=== PATIENT | female | born 1985 | race Caucasian/White ===

== ENCOUNTER 2023-08-31 20:19 | Emergency (ER) | payer OTHER, SELFPAY ==
[2023-08-31 20:26] VITALS: BP 117/84; PULSE 68; RESP 14; TEMP 37.1; O2SAT 98; BMI 19.8
[2023-08-31 20:38] LABS: Appearance Urine Clear (Clear); Bilirubin Urine Negative (Negative); Blood Urine Trace-intact (Negative); Color Urine Yellow (Yellow); Glucose Urine Negative (Negative); Ketones Urine Negative (Negative); Leukocyte Esterase Urine Negative (Negative); Nitrite Urine Negative (Negative); Protein Urine Trace (Negative); Specific Gravity Urine >= 1.030 (1.000-1.030)
[2023-08-31 20:40] LABS: Mucus Urine Few; RBC Urine 0-2 (0-2); Squamous Epithelial Cell Urine Few (None-Few); WBC Urine 0-2 (0-5)
--- NOTE | 2023-08-31 21:24 | ED_ITS ---
HPI - General Adult General Chief complaint: Urogenital Problems, Female Stated complaint: UTI symptoms Time Seen by Provider: 08/31/23 21:24 History of Present Illness HPI narrative: Pt here for eval of urinary frequency, pressure while urinating, severe cramping , nausea, lower back pain, chills. Tmax at 99.5. 37-year-old woman presenting to the emergency department with complaint of lower abdominal pelvic cramping pain radiating into the left flank as well. Wants to go to the bathroom but does not feel like she can really. No diarrhea but feels like maybe that would be something that would be coming. There has been some cough and cold symptoms in the home. She has not had those kind of symptoms though. Has felt chilled. Nauseated. Feels a vague sense of pressure with urinating but not actually dysuria. Family history or personal history kidney stones. One week post LMP. Has had some what sounds like cervical procedures including a LEEP and she notes a cyst but does not sound like it was an ovarian cyst. She is not constipated. notes that she had a good appetite this evening. Related Data Home Medications Medication Instructions Recorded Confirmed levonorgestrel-ethinyl estradiol 1 tab PO DAILY 08/31/23 09/04/23 0.1 mg-20 mcg tablet (Vienva) ondansetron HCl 4 mg tablet 4 mg PO TID 09/02/23 09/04/23 oxycodone-acetaminophen 5 mg-325 1 tab PO Q4H 09/02/23 09/04/23 mg tablet (Percocet) Previous Rx's Medication Instructions Recorded tamsulosin 0.4 mg capsule (Flomax) 0.4 mg PO DAILY PRN #10 caps 08/31/23 ketorolac 10 mg tablet 10 mg PO Q6H PRN pain 5 days #20 09/02/23 tabs Allergies Allergy/AdvReac Type Severity Reaction Status Date / Time No Known Allergies Allergy Unknown Unknown Verified 09/02/23 11:00 Review of Systems Status of ROS: Reports: 6 or more systems reviewed and unremarkable except as noted in History and below [facility] Medical History Impaired exercise tolerance ?R68.89 - Other general symptoms and signs (ICD-10) Encounter for control pills maintenance ?Z30.41 - Encounter for surveillance of contraceptive pills (ICD-10) History of hemolysis, elevated liver enzymes, and low platelet (HELLP) syndrome (2018) ?Z87.59 - Personal history of other complications of , childbirth and the puerperium (ICD-10) Surgical History History of colposcopy with cervical biopsy (2016) ?Z98.890 - Other specified postprocedural states (ICD-10) History of loop electrical excision procedure (LEEP) (2017) ?Z98.890 - Other specified postprocedural states (ICD-10) History of (2018) ?Z98.891 - History of uterine scar from previous surgery (ICD-10) Social History Narrative: , homemaker, solidworks mechanical designer, from [facility], 1 child Nonsmoker 1-2 alcoholic drinks a week Exercise videos 3 times a week Smoking Status: Never smoker Do you use any of these nicotine containing products: None Second hand tobacco smoke exposure: No How often do you have a drink containing alcohol: never How often do you have six or more drinks on one occasion: Never AUDIT-C Alcohol total score: 0 Non-prescribed substance use: denies use service: No Exam Narrative: Exam Narrative: Pleasant. Appears uncomfortable. Skin is warm and dry. Extremities are well perfused without edema. She is breathing easily. Lungs are clear. Heart in regular rate and rhythm. Abdomen with normoactive bowel sounds is soft. There is a little tenderness in the left mid abdomen. Not exactly flank tenderness. Const: Vital Signs, click to edit/add: Vital Signs - 24 hr 08/31/23 20:26 Temperature 98.8 F Pulse Rate [Pulse Oximeter] 68 Respiratory Rate 14 Blood Pressure [Ri ght Upper Arm] 117/84 Pulse Oximetry 98 Oxygen Delivery Me thod Room Air Documenting provider has reviewed patient's vital signs: yes Course Vital Signs Vital signs: Initial Vital Signs Temperature 98.8 F 08/31/23 20:26 Temperature Source Temporal Artery Scan 08/31/23 20:26 Pulse Rate 68 08/31/23 20:26 Pulse Rhythm Regular 08/31/23 20:26 Respiratory Rate 14 08/31/23 20:26 Blood Pressure 117/84 08/31/23 20:26 Blood Pressure Mean 95 08/31/23 20:26 Blood Pressure Position Sitting 08/31/23 20:26 Pulse Oximetry 98 08/31/23 20:26 Oxygen Delivery Method Room Air 08/31/23 20:26 Vital Signs Temperature 98.8 F 08/31/23 20:26 Pulse Rate 68 08/31/23 20:26 Respiratory Rate 14 08/31/23 20:26 Blood Pressure 117/84 08/31/23 20:26 Pulse Oximetry 98 08/31/23 20:26 Oxygen Delivery Method Room Air 08/31/23 20:26 Temperature 98.4 F 08/31/23 23:50 Pulse Rate 81 08/31/23 23:50 Respiratory Rate 16 08/31/23 23:50 Blood Pressure 126/74 08/31/23 23:50 Pulse Oximetry 97 08/31/23 23:50 Oxygen Delivery Method Room Air 08/31/23 23:50 Medical Decision Making MDM Narrative Medical decision making narrative: Seems does some elements of postvoid cramping which may represent dysuria and cystitis, maybe perimenstrual, may have an ectopic , differential also includes kidney stone. Does not appear to have a bowel symptoms. Will check labs specifically urine and image accordingly if necessary. IV is established received a L normal saline ketorolac morphine and Zofran. Labs are generally reassuring. Urinalysis with some trace intact blood Considering that the type of pain in not explained in other ways I think kidney stone and ureteral colic is a possibility. Did order CT imaging of the abdomen pelvis new. This did show by my read a small 2-3 mm stone about to enter the bladder I think. There is some hydronephrosis as well. Radiology over-read as below. IMPRESSION: Moderate left-sided hydroureteronephrosis secondary to a 3 millimeter obstructing left UVJ stone After initial improvement in pain it escalated again along with nausea. Given Dilaudid dosing and Reglan. Then diphenhydramine for what I think is some histamine related nausea vomiting. Unfortunately this is after she has already received her opiate. Ultimately did want try to manage at home. See patient discharge plan Lab Data Lab results reviewed: Yes I reviewed the patient's lab results Labs: Lab Results 08/31/23 08/31/23 08/31/23 Range/Units 20:30 20:33 21:30 WBC 7.37 (4.50-11.00) K/uL RBC 4.86 (4.00-5.20) m/uL Hgb 15.0 (12.0-16.0) gm/dL Hct 44.9 (33.0-51.0) % MCV 92 (80-100) fL MCH 31 (26-34) pg MCHC 33 (32-36) gm/dL RDW Coeff of Bhavik 12.0 (11.5-15.5) % Plt Count 303 (140-440) K/uL Neut % (Auto) 58.2 (42.0-72.0) % Lymph % (Auto) 31.6 (20-44) % [place] % (Auto) 8.4 (0.0-11.0) % Eos % (Auto) 1.4 (0.0-7.0) % Baso % (Auto) 0.3 (0.0-3.0) % Neut # (Auto) 4.29 (1.7-7.0) K/uL Lymph # (Auto) 2.33 (0.90-2.90) K/uL [place] # (Auto) 0.60 (0.00-0.90) K/UL Eos # (Auto) 0.10 (0.00-0.50) K/uL Baso # (Auto) 0.02 (0.00-0.30) K/uL Abs Immat Gran (auto) 0.01 (0.00-0.30) K/uL Imm/Tot Granulo (auto) 0.1 % Sodium 141 (135-149) mmol/L Potassium 3.9 (3.6-5.1) mmol/L Chloride 106 (96-114) mmol/L Carbon Dioxide 24 (20-32) mmol/L Anion Gap 11 (7-15) mEq/L BUN 14 (5-24) mg/dL Creatinine 0.9 (0.5-1.5) mg/dL Estimated Creat Clear 69.30 Estimated GFR 85 ml/min Glucose 118 H (60-115) mg/dL Calcium 9.7 (8.4-10.6) mg/dL C-Reactive Protein 0.7 (0.5-1.0) mg/dL Urine Color Yellow (Yellow) Urine Appearance Clear (Clear) Urine pH 6.0 (5.0-8.5) Ur Specific [place] >= 1.030 (1.000-1.030) Urine Protein Trace A (Negative) Urine Glucose (UA) Negative (Negative) Urine Ketones Negative (Negative) Urine Blood Trace-intact A (Negative) Urine Nitrite Negative (Negative) Urine Bilirubin Negative (Negative) Urine Urobilinogen 1.0 (0.2-1.0) Ur Leukocyte Esterase Negative (Negative) Urine RBC 0-2 (0-2) Urine WBC 0-2 (0-5) Ur Squamous Epith Cells Few (None-Few) Urine Bacteria None (None) Urine Mucus Few A (None) Urine HCG, Qual Negative (Negative) Discharge Plan Discharge Clinical Impression: Ureteral colic, Left ureteral calculus Patient Disposition: Home w/ Parent or Adult Condition: Improved Additional Instructions: Consider straining your urine over this next week. Sometimes stone analysis can be helpful. Generally stay well-hydrated. Be re-evaluated for pain persisting after 4 more days, marked increase in/uncontrolled pain, fever, intractable vomiting. Zofran and Percocet from [facility]. Can take up to 800 mg of ibuprofen or up to 1000 mg of acetaminophen per dose. Alternative to the ibuprofen might be up to 500 mg naproxen 2 times daily. Ibuprofen or naproxen may be combined with acetaminophen. Remember that each tablet of Percocet contains 325 mg of acetaminophen. Might pre-treat opiates with diphenhydramine if seem to be causing nausea. Flomax sent in to your pharmacy might be helpful with cramping. Take until sure of stone passage/resolution. Prescriptions: New tamsulosin [Flomax] 0.4 mg capsule 0.4 mg PO DAILY PRNQty: 10 0RF No Action oxycodone-acetaminophen [Percocet] 5-325 mg tablet 1 tab PO Q4H ondansetron HCl 4 mg tablet 4 mg PO TID ketorolac 10 mg tablet 10 mg PO Q6H PRN (Reason: pain) 5 Days Qty: 20 0RF levonorgestrel-ethinyl estrad [Vienva] 0.1-20 mg-mcg tablet 1 tab PO DAILY Follow Up/Referrals: Shelia Benavidez MD [Primary Care Provider] - Stand Alone Forms: [employer] Info Instructions
[2023-08-31 21:39] LABS: Ur HCG Qualitative* Negative (Negative)
[2023-08-31 21:41] LABS: Basophils Absolute Auto 0.02 K/uL (0.00-0.30); Basophils Percent Auto 0.3 % (0.0-3.0); Eosinophils Percent Auto 1.4 % (0.0-7.0); Hematocrit 44.9 % (33.0-51.0); Immature Granulocytes Abs Auto 0.01 K/uL (0.00-0.30); Immature Granulocytes Pct Auto 0.1 %; Lymphocytes Absolute Auto 2.33 K/uL (0.90-2.90); Lymphocytes Percent Auto 31.6 % (20-44); Mean Corpuscular HGB Conc 33 gm/dL (32-36); Mean Corpuscular Hemoglobin 31 pg (26-34); Mean Corpuscular Volume 92 fL (80-100); Monocytes Percent Auto 8.4 % (0.0-11.0); Neutrophils Absolute Auto 4.29 K/uL (1.7-7.0); Neutrophils Percent Auto 58.2 % (42.0-72.0); Platelet Count* 303 K/uL (140-440); Red Blood Count 4.86 m/uL (4.00-5.20); White Blood Count* 7.37 K/uL (4.50-11.00)
[2023-08-31 21:42] LABS: Slide Review Reflex No
[2023-08-31] MEDS: 0.9 % SODIUM CHLORIDE 1000 ml 1,000 ML IV (21:43)
[2023-08-31] MEDS: KETOROLAC 30 MG/ML inj IVP (21:43)
[2023-08-31] MEDS: MORPHINE 4 MG/ML INJ IVP (21:43)
[2023-08-31 21:45] VITALS: O2SAT 98
[2023-08-31 21:54] LABS: Chloride* 106 mmol/L (96-114); Potassium* 3.9 mmol/L (3.6-5.1); Sodium* 141 mmol/L (135-149)
[2023-08-31 21:57] LABS: Anion Gap 11 mEq/L (7-15); Blood Urea Nitrogen* 14 mg/dL (5-24); Carbon Dioxide* 24 mmol/L (20-32); Creatinine* 0.9 mg/dL (0.5-1.5); Estimated Glomerular Filt Rate 85 ml/min
[2023-08-31 21:58] LABS: Calcium* 9.7 mg/dL (8.4-10.6); Glucose* 118 mg/dL (60-115)
[2023-08-31] MEDS: ONDANSETRON 2 MG/ML inj 4 MG IVP (21:58)
[2023-08-31 22:00] LABS: C Reactive Protein* 0.7 mg/dL (0.5-1.0)
--- NOTE | 2023-08-31 22:09 | CRLHL7_ITS ---
For Patients: As a result of the Century Cures Act, medical imaging exams and procedure reports are released immediately into your electronic medical record. You may view this report before your referring provider. If you have questions, please contact your health care provider. INDICATION: Left lower quadrant pain. TECHNIQUE: CT abdomen and pelvis acquired with 100 cc Omnipaque 350 IV contrast. COMPARISON: None. FINDINGS: Lower chest: Unremarkable. Liver: Unremarkable. Normal in size and attenuation. No suspicious masses. Gallbladder and bile ducts: Unremarkable. No stones or inflammation. No biliary dilatation. Pancreas: Unremarkable. No mass or inflammation. Spleen: Unremarkable. Normal in size. No masses. Adrenal glands: Unremarkable. No nodules. Kidneys: Moderate left-sided hydroureteronephrosis secondary to a 3 millimeter obstructing left UVJ stone. GI tract: Unremarkable. Normal in caliber. No sign of mass or inflammation. Normal appendix. Vasculature: Abdominal aorta is normal in caliber. Mesenteric arteries are patent. Lymph nodes: No lymphadenopathy. Peritoneum/Abdominal Wall: Unremarkable. No sign of mass or infiltration. No free air or significant free fluid. Pelvis: Unremarkable. Bones: Unremarkable for age. IMPRESSION: Moderate left-sided hydroureteronephrosis secondary to a 3 millimeter obstructing left UVJ stone. Please note that all CT scans at this facility use dose modulation, iterative reconstruction, and/or weight-based dosing when appropriate to reduce radiation dose to as low as reasonably achievable. Dictated by Meir Manrique MD @ 08/31/2023 11:17:20 PM (Electronically Signed)
[2023-08-31 22:12] VITALS: TEMP 37.1
[2023-08-31] MEDS: TAMSULOSIN HCL 0.4 MG CAPSULE PO (22:27)
[2023-08-31] MEDS: HYDROmorphone 0.5 mg/0.5 ml inj IVP (22:27)
[2023-08-31] MEDS: METOCLOPRAMIDE HCL 10 MG in 0.9 % SODIUM CHLORIDE 100 ml 100 ML 306 MG IVPB (23:12)
--- NOTE | 2023-08-31 23:39 | ED.NURSE ---
pt vomited about 200cc, MD Notified, reglan given per MD order, pt vomited a second time for around 300, both appear to be partially digested food.
[2023-08-31] MEDS: diphenhydrAMINE 50 MG/ML inj 12.5 MG IVP (23:45)
[2023-08-31 23:50] VITALS: BP 126/74; PULSE 81; RESP 16; TEMP 36.9; O2SAT 97
== END 2023-09-01 00:14 | disposition home or self-care (01) ==
PROVIDERS: Emergency Provider Family Medicine; PCP Family Medicine
DX: N20.1 Calculus of ureter (principal)
CPT/HCPCS: 36415; 74177; 80048; 81001; 81025; 85025; 86140; 94761; 96365; 96375; 99284; A9270; J1170; J1200; J1885; J2270; J2405; J2765; J7030; Q9967

== ENCOUNTER 2023-09-02 10:40 | Emergency (ER) | payer OTHER, SELFPAY ==
[2023-09-02 11:01] VITALS: BP 127/81; PULSE 97; RESP 16; TEMP 36.2; O2SAT 95; BMI 19.8
--- NOTE | 2023-09-02 12:13 | ED_ITS ---
HPI - General Adult General Time Seen by Provider: 12:13 Date Seen: 09/02/23 Chief complaint: Nausea/Vomiting Stated complaint: pain from kidney stone,vomiting Time Seen by Provider: 09/02/23 12:07 Source: patient, RN notes reviewed and old records reviewed Mode of arrival: ambulatory Limitations: no limitations History of Present Illness HPI narrative: This patient is returning to ED with nausea and vomiting, increased abdominal pain in setting in known 3mm kidney stone near bladder per their report diagnosed on Friday, today is Friday. She states Friday night was bad with pain, then felt bit better after that but nausea increasing, believes that it may be the percocet. History of being very sensitive to norco, did tolerate oxycodone after delivery but took only about 3 tabs. Believes she has had to use about 7 or 8 of the percocet so far. Zofran not helping with nausea now. In the last few hours, unable to tolerate any fluids. Has not been doing very good with solids through this. No fever. Pain is not moving. Related Data Home Medications Medication Instructions Recorded Confirmed levonorgestrel-ethinyl estradiol 1 tab PO DAILY 08/31/23 09/02/23 0.1 mg-20 mcg tablet (Vienva) ondansetron HCl 4 mg tablet 4 mg PO TID 09/02/23 09/02/23 oxycodone-acetaminophen 5 mg-325 1 tab PO Q4H 09/02/23 09/02/23 mg tablet (Percocet) Previous Rx's Medication Instructions Recorded tamsulosin 0.4 mg capsule (Flomax) 0.4 mg PO DAILY PRN #10 caps 08/31/23 ketorolac 10 mg tablet 10 mg PO Q6H PRN pain 5 days #20 09/02/23 tabs Allergies Allergy/AdvReac Type Severity Reaction Status Date / Time No Known Allergies Allergy Unknown Unknown Verified 09/02/23 11:00 Review of Systems Status of ROS: Reports: 6 or more systems reviewed and unremarkable except as noted in History and below [facility] Medical History Impaired exercise tolerance ?R68.89 - Other general symptoms and signs (ICD-10) Encounter for control pills maintenance ?Z30.41 - Encounter for surveillance of contraceptive pills (ICD-10) History of hemolysis, elevated liver enzymes, and low platelet (HELLP) syndrome (2018) ?Z87.59 - Personal history of other complications of , childbirth a nd the puerperium (ICD-10) Surgical History History of colposcopy with cervical biopsy (2016) ?Z98.890 - Other specified postprocedural states (ICD-10) History of loop electrical excision procedure (LEEP) (2017) ?Z98.890 - Other specified postprocedural states (ICD-10) History of (2018) ?Z98.891 - History of uterine scar from previous surgery (ICD-10) Social History Narrative: , homemaker, creative designer, from [facility], 1 child Nonsmoker 1-2 alcoholic drinks a week Exercise videos 3 times a week Smoking Status: Never smoker Do you use any of these nicotine containing products: None Second hand tobacco smoke exposure: No How often do you have a drink containing alcohol: never How often do you have six or more drinks on one occasion: Never AUDIT-C Alcohol total score: 0 Non-prescribed substance use: denies use service: No Exam Const: Vital Signs, click to edit/add: Vital Signs - 24 hr 09/02/23 11:01 Temperature 97.1 F L Pulse Rate [Femora l] 97 Respiratory Rate 16 Blood Pressure [Le ft Upper Arm] 127/81 Pulse Oximetry 95 Oxygen Delivery Me thod Room Air Patient is a 37-year-old female sitting up on the bed, looks uncomfortable. Sclera clear, conjugate gaze, speech normal. Lungs are clear, good air entry, no wheezing crackles. Some mild left CVA tenderness. CV regular rate and rhythm, no murmur, normal S1 and S2. Abdomen is soft, no reproducible abdominal pain, no masses. Skin without rash or jaundice. Moving extremities. Documenting provider has reviewed patient's vital signs: yes Course Course ED Course: Did review CT report, it is a documented 3 mm stone distally. This will very likely passed. I agree with patient and her whom feel that some of her symptoms are from the Percocet. Will initiate IV fluids, check renal ultrasound just to ensure no significant worsening of hydronephrosis, recheck urine and basic labs. Will initiate IV fluids, try pain management with Toradol and give her some IV Zofran. Reevaluation(s) Time of Reevaluation #1: 13:10 Reevaluation #1: Checked on patient to see if Toradol helped, she did not have IV done, nothing started and is upset. I did go get a nurse to assist in getting orders started. Did also apologize that I did not get my orders for pain management in initially. We will move to get all of this taken care of. Time of Reevaluation #2: 14:40 Reevaluation #2: Patient was just up to the bathroom, did discuss having a 2 L of IV fluids, labs suggest significant enough dehydration that I would recommend getting another L of fluids in. Her pain is creeping up a bit, did tolerate the Toradol, will give her another 15 mg IV Toradol. Did discuss that she could use oral Toradol at home instead of the narcotic. Time of Reevaluation #3: 15:01 Reevaluation #3: Patient does not want to stay for the lactated Ringer's. Will cancel that, give the final IV Toradol and allow discharge to home for further outpatient management. Vital Signs Vital signs: Initial Vital Signs Temperature 97.1 F L 09/02/23 11:01 Temperature Source Temporal Artery Scan 09/02/23 11:01 Pulse Rate 97 09/02/23 11:01 Pulse Rhythm Regular 09/02/23 11:01 Pulse Strength 3+ Normal 09/02/23 11:01 Respiratory Rate 16 09/02/23 11:01 Blood Pressure 127/81 09/02/23 11:01 Blood Pressure Mean 96 09/02/23 11:01 Blood Pressure Position Sitting 09/02/23 11:01 Pulse Oximetry 95 09/02/23 11:01 Oxygen Delivery Method Room Air 09/02/23 11:01 Vital Signs Temperature 97.1 F L 09/02/23 11:01 Pulse Rate 97 09/02/23 11:01 Respiratory Rate 16 09/02/23 11:01 Blood Pressure 127/81 09/02/23 11:01 Pulse Oximetry 95 09/02/23 11:01 Oxygen Delivery Method Room Air 09/02/23 11:01 Temperature 97.1 F L 09/02/23 11:01 Pulse Rate 97 09/02/23 11:01 Respiratory Rate 16 09/02/23 11:01 Blood Pressure 127/81 09/02/23 11:01 Pulse Oximetry 95 09/02/23 11:01 Oxygen Delivery Method Room Air 09/02/23 11:01 Medical Decision Making Lab Data Labs: Lab Results 09/02/23 09/02/23 Range/Units 12:18 13:15 WBC 11.94 H (4.50-11.00) K/uL RBC 3.93 L (4.00-5.20) m/uL Hgb 12.2 (12.0-16.0) gm/dL Hct 36.5 (33.0-51.0) % MCV 93 (80-100) fL MCH 31 (26-34) pg MCHC 33 (32-36) gm/dL RDW Coeff of Bhavik 12.1 (11.5-15.5) % Plt Count 224 (140-440) K/uL Neut % (Auto) 85.0 H (42.0-72.0) % Lymph % (Auto) 7.4 L (20-44) % [place] % (Auto) 7.1 (0.0-11.0) % Eos % (Auto) 0.2 (0.0-7.0) % Baso % (Auto) 0.1 (0.0-3.0) % Neut # (Auto) 10.10 H (1.7-7.0) K/uL Lymph # (Auto) 0.90 (0.90-2.90) K/uL [place] # (Auto) 0.80 (0.00-0.90) K/UL Eos # (Auto) 0.00 (0.00-0.50) K/uL Baso # (Auto) 0.00 (0.00-0.30) K/uL Abs Immat Gran (auto) 0.00 (0.00-0.30) K/uL Imm/Tot Granulo (auto) 0.2 % Sodium 136 (135-149) mmol/L Potassium 3.8 (3.6-5.1) mmol/L Chloride 108 (96-114) mmol/L Carbon Dioxide 17 L (20-32) mmol/L Anion Gap 11 (7-15) mEq/L BUN 11 (5-24) mg/dL Creatinine 1.1 (0.5-1.5) mg/dL Estimated Creat Clear 56.70 Estimated GFR 67 ml/min Glucose 97 (60-115) mg/dL Calcium 8.6 (8.4-10.6) mg/dL C-Reactive Protein 5.8 H (0.5-1.0) mg/dL Urine Color Yellow (Yellow) Urine Appearance Slightly Cloudy A (Clear) Urine pH 5.5 (5.0-8.5) Ur Specific [place] >= 1.030 (1.000-1.030) Urine Protein 2+ A (Negative) Urine Glucose (UA) Negative (Negative) Urine Ketones 4+ A (Negative) Urine Blood 3+ A (Negative) Urine Nitrite Negative (Negative) Urine Bilirubin Negative (Negative) Urine Urobilinogen 0.2 (0.2-1.0) Ur Leukocyte Esterase Negative (Negative) Urine RBC 10-25 A (0-2) Urine WBC 5-10 A (0-5) Ur Squamous Epith Cells Many A (None-Few) Other Sediment Few A (None) Urine Bacteria Moderate A (None) Urine Yeast Few A (None) Imaging Data US - abdomen: Attestation: I have reviewed the pertinent imaging results. Radiologist's impression: Patient: HUMBLE LOPEZ Facility:?[facility] Patient ID:?[id number] Site Patient ID:?[id number]. Site :?[id number] Study:?US Abdomen Bilateral RENAL-09/02/2023 12:53:42 PM Ordering Physician:?Evelina Escobar Final Report: CLINICAL HISTORY: INCREASING PAIN WITH KNOWN STONE COMPARISON: CT 08/31/2023 TECHNIQUE: Hansen scale and color Doppler images were acquired of the kidneys and urinary bladder. FINDINGS: Mild left hydronephrosis again noted. No renal stone. The right kidney measures 11.6cm in length and the left kidney measures 12.3cm in length. The renal cortex appears of normal thickness. Left proximal ureter is dilated. No abnormal vasc ularity. Bladder nondistended. IMPRESSION: Mild left hydroureteronephrosis again noted. Dictated by Joey Gonzalez MD @ 09/02/2023 1:04:52 PM (Electronic Signature) Discharge Plan Discharge Clinical Impression: Drug-induced nausea and vomiting, Left ureteral calculus Patient Disposition: Home, Self-Care Condition: Stable Instructions: Kidney Stones (ED), Renal Colic (ED), Acute Nausea and Vomiting (ED) Additional Instructions: Can try Toradol per prescription for pain management. If you are not using the Percocet, can use Tylenol 1000 mg 3 times a day baseline for pain. Continue with Flomax daily until the stone passes. If you develop fever, are having symptoms beyond 2 weeks, have uncontrolled pain or are unable to get oral fluids in due to symptoms, do need to be re-evaluated. Goal is to drink enough water or fluids to try to keep urine clear looking. Activity Level: Activity as Tolerated Prescriptions: New ketorolac 10 mg tablet 10 mg PO Q6H PRN (Reason: pain) 5 Days Qty: 20 0RF No Action oxycodone-acetaminophen [Percocet] 5-325 mg tablet 1 tab PO Q4H ondansetron HCl 4 mg tablet 4 mg PO TID levonorgestrel-ethinyl estrad [Vienva] 0.1-20 mg-mcg tablet 1 tab PO DAILY tamsulosin [Flomax] 0.4 mg capsule 0.4 mg PO DAILY PRNQty: 10 0RF Follow Up/Referrals: Shelia Benavidez MD [Primary Care Provider] - Stand Alone Forms: [employer] Info Instructions
--- NOTE | 2023-09-02 12:18 | CRLHL7_ITS ---
For Patients: As a result of the Century Cures Act, medical imaging exams and procedure reports are released immediately into your electronic medical record. You may view this report before your referring provider. If you have questions, please contact your health care provider. CLINICAL HISTORY: INCREASING PAIN WITH KNOWN STONE COMPARISON: CT 08/31/2023 TECHNIQUE: Hansen scale and color Doppler images were acquired of the kidneys and urinary bladder. FINDINGS: Mild left hydronephrosis again noted. No renal stone. The right kidney measures 11.6cm in length and the left kidney measures 12.3cm in length. The renal cortex appears of normal thickness. Left proximal ureter is dilated. No abnormal vascularity. Bladder nondistended. IMPRESSION: Mild left hydroureteronephrosis again noted. Dictated by Joey Gonzalez MD @ 09/02/2023 1:04:52 PM (Electronically Signed)
[2023-09-02 12:44] LABS: Appearance Urine Slightly Cloudy (Clear); Bilirubin Urine Negative (Negative); Blood Urine 3+ (Negative); Color Urine Yellow (Yellow); Glucose Urine Negative (Negative); Ketones Urine 4+ (Negative); Leukocyte Esterase Urine Negative (Negative); Nitrite Urine Negative (Negative); Protein Urine 2+ (Negative); Specific Gravity Urine >= 1.030 (1.000-1.030); Urobilinogen Urine 0.2 (0.2-1.0); pH Urine 5.5 (5.0-8.5)
[2023-09-02 13:02] LABS: Bacteria Urine Moderate; Other Sediment Urine Few; Squamous Epithelial Cell Urine Many (None-Few)
[2023-09-02 13:21] LABS: Basophils Percent Auto 0.1 % (0.0-3.0); Eosinophils Percent Auto 0.2 % (0.0-7.0); Hematocrit 36.5 % (33.0-51.0); Hemoglobin* 12.2 gm/dL (12.0-16.0); Immature Granulocytes Pct Auto 0.2 %; Lymphocytes Percent Auto 7.4 % (20-44); Mean Corpuscular HGB Conc 33 gm/dL (32-36); Mean Corpuscular Hemoglobin 31 pg (26-34); Mean Corpuscular Volume 93 fL (80-100); Monocytes Percent Auto 7.1 % (0.0-11.0); Platelet Count* 224 K/uL (140-440); RDW Coefficient of Variation % 12.1 % (11.5-15.5); Red Blood Count 3.93 m/uL (4.00-5.20); White Blood Count* 11.94 K/uL (4.50-11.00)
[2023-09-02] MEDS: KETOROLAC 15 MG/ML inj IVP ×2 (13:24→14:55)
[2023-09-02] MEDS: ONDANSETRON 2 MG/ML inj 4 MG IVP (13:24)
[2023-09-02 13:26] LABS: Slide Review Reflex No
[2023-09-02] MEDS: 0.9 % SODIUM CHLORIDE 1000 ml 1,000 ML 500 ML IV (13:28)
[2023-09-02 13:35] LABS: Chloride* 108 mmol/L (96-114); Potassium* 3.8 mmol/L (3.6-5.1); Sodium* 136 mmol/L (135-149)
[2023-09-02 13:37] LABS: Creatinine* 1.1 mg/dL (0.5-1.5); Estimated Glomerular Filt Rate 67 ml/min
[2023-09-02 13:38] LABS: Anion Gap 11 mEq/L (7-15); Blood Urea Nitrogen* 11 mg/dL (5-24); Carbon Dioxide* 17 mmol/L (20-32)
[2023-09-02 13:39] LABS: Calcium* 8.6 mg/dL (8.4-10.6); Glucose* 97 mg/dL (60-115)
[2023-09-02 13:41] LABS: C Reactive Protein* 5.8 mg/dL (0.5-1.0)
[2023-09-02 15:12] VITALS: BP 115/74; PULSE 93; RESP 20; O2SAT 98
== END 2023-09-02 15:20 | disposition home or self-care (01) ==
PROVIDERS: Emergency Provider Family Medicine; PCP Family Medicine
DX: R11.2 Nausea with vomiting, unspecified (principal); N20.1 Calculus of ureter
CPT/HCPCS: 36415; 76775; 80048; 81001; 85025; 86140; 87086; 96361; 96374; 96375; 99284; J1885; J2405; J7030

== ENCOUNTER 2023-09-04 12:47 | Outpatient (CLI) | payer OTHER, SELFPAY | END 2023-09-04 12:48 | disposition home or self-care (01) | LOC: NFLDREF 09-08 08:17 | PROVIDERS: PCP Family Medicine; Referring Provider Family Medicine; Visit Provider Nurse Practitioner Family | DX: N20.1 Calculus of ureter (principal); R11.2 Nausea with vomiting, unspecified; T50.905A Adverse effect of unspecified drugs, medicaments and biological substances, initial encounter; Z13.89 Encounter for screening for other disorder | CPT/HCPCS: 87086 ==

== ENCOUNTER 2024-08-04 07:45 | Outpatient (CLI) | payer BC, SELFPAY ==
--- OUTSIDE RECORDS SUMMARY | 2024-08-07 20:24 | XMS_ITS | Clinical Summary ---
Author Organization [facility] Address [place], [place] [address] Care Team Providers Care Regional Driver Name Role Phone Pcp, No Primary Care Provider Unavailabl e Allergies No known active allergies Medications Medication Sig Dispensed Refills Start Date End Date Status PNV [id number] -LUTEIN ORAL Take by mouth once daily. Active acetaminophen (TYLENOL EXTRA STRGTH) 500 mg tabletIndications: delivery delivered Take 1 tablet by mouth every 6 hours if needed (mild pain). Max acetaminophen dose: 4000mg in 24 hrs. 07/22/2018 Active docusate (COLACE) 100 mg capsuleIndications : delivery delivered Take 1 capsule by mouth 2 times daily if needed for Constipation. 100 capsule 07/22/2018 Active oxyCODONE (ROXICODONE) 5 mg immediate release tabletIndications: delivery delivered Take 1-2 tablets by mouth every 4 hours if needed for Pain (for moderate to severe pain not controlled with ibuprofen and acetaminophen). 20 tablet 07/22/2018 Active Breast Pump - PurchaseIndication s:Disorder of , condition or complication,Prete rm delivery,Lactating mother Electric breast pump for home use. Gestation age at delivery: 34w2d weeks. Reason for need: delivery, in NICU, lactating mother. Length of need: 12 months 1 Device 07/22/2018 Active Breast Pump-RentalIndicat ions:Lactating mother, delivery,Disorder of , condition or complication Electric breast pump for home use. Gestation age at delivery: 34w2d weeks. Reason for need: lactating mother, delivery, in NICU. Length of need: 12 months 1 Device 07/22/2018 Active Active Problems Problem Noted Date Diagnosed Date Disorder of , condition or c omplication 07/21/2018 Severe preeclampsia, third trimester 07/18/2018 HELLP syndrome (HELLP), third trimester 07/18/20 18 delivery 07/18/2018 delivery delivered 07/18/2018 Primigravida 07/14/2018 uterine contractions in third trimester, antepartum 07/14/2018 Urinary frequency 07/14/2018 Immunizations Name Administration Dates Next Due Tdap 06/15/2018 Social History Tobacco Use Types Packs/Day Years Used Date Smoking Tobacco: Never Smokeless Tobacco: Never Alcohol Use Standard Drinks/Week Comments No 0 (1 standard drink = 0.6 oz pur e alcohol) Sex and Gender Information Value Date Recorded Sex Assigned at Not on file Gender Identity Not on file Sexual Orientation Not on file Obstetrics History Para Term AB IAB SAB Ectopic Multiple Livin g Live Births 1 Date Outcome GA Total Labor Labor/2nd/3rd Weight Sex Type Anes PTL Vianey A1 A5 Name Clin Last Filed Vital Signs Vital Sign Reading Time Taken Comments Blood Pressure 112/71 07/22/2018 11:30 AM CDT Pulse 68 07/22/2018 8:07 AM CDT Temperature 36.7 ??C (98.1 ??F) 07/22/2018 8:07 AM CD T Respiratory Rate 16 07/22/2018 8:07 AM CDT Oxygen Saturation 97% 07/22/2018 8:07 AM CDT Inhaled Oxygen Concentration - - Weight 52.2 kg (115 lb) 07/22/2018 6:02 AM CDT Height 162.6 cm (5' 4) 07/17/2018 10:20 PM CDT Body Mass Index 19.74 07/17/2018 10:20 PM CDT Plan of Treatment Health Maintenance Due Date Last Done Comments Depression screening for age 12+ 1998 HIV for age 15-65 2001 BMI (ht and wt on same day) for age 18+ 2004 Hepatitis C screening for age 18-79 2004 Pap test for age 21-65 03/22/2022 9, 03/22/2019, 01/15/2018, Additional history exists COVID-19 vaccine series (2022- season) 2024 Influenza for age 9-49 07/11/2024 Tetanus booster 06/15/2028 06/15/2018 Tdap Completed 06/15/2018 Pneumococcal series for age 6-64 Aged Out No longer eligible based on patient's age to complete this topic Procedures Procedure Name Priority Date/Time Associated Diagnosis Comments SITE INTERPRETER THIN PREP PAP SCREEN IMAGED Routine 03/22/2019 12:42 PM CDT from Last 3 Months or Most Recently Relevant to Health Maintenance Results * SITE INTERPRETER THIN PREP PAP SCREEN IMAGED (03/22/2019 12:42 PM CDT) Case Report Gynecologic Cytology Report ? Case: [id number] ? Authorizing Provider: ??Danika Carrasquillo MD ?Collected: ? 03/22/2019 1242 ? Ordering Location: ? [facility] ?Received: ?03/24/2019 0837 ? First Screen: ?Martín Gibson ? Rescreen: ?Mariah Knight ? Specimen: ?SITE INTERPRETER ThinPrep Vial Screening, Cervical/Vaginal ? 04/02/2019 12:28 PM CDT [facility] INTERPRETATION/ RESULT NEGATIVE FOR INTRAEPITHELIAL LESION OR MALIGNANCY (NIL) (none) 04/02/2019 12:28 PM CDT [facility] IMEN ADEQUACY Satisfactory for evaluation Endocervical component present 04/02/2019 12:28 PM CDT [facility] HPV REQUEST HPV and PAP 04/02/2019 12:28 PM CDT [facility] Date of LMP 04/02/2019 12:28 PM CDT [facility] Comment:11/2018 Last Pap Date 01/15/2018 04/02/2019 12:28 PM CDT [facility] Last Pap Result 12:28 PM CDT [facility] Comment:neg Additional Information LEEP 2016, cervical dysplasia 04/02/2019 12:28 PM CDT [facility] Automated Review Successful 04/02/2019 12:28 PM CDT [facility] Comment:Specimen processed s uccessfully by automated educational sign language interpreter device, ThinPrep Imaging System, [employer] ANCILLARY TESTING SITE INTERPRETER HPV Ordered, Please see separate report 04/02/2019 12:28 PM T [facility] Note The pap test is a screening technique, not a diagnostic procedure. ??It is used primarily to screen for squamous cancers and precursor lesions. ??Published studies have shown that it is subject to both false negative and false positive results. ??The pap test should not be used as the sole means to diagnose or exclude pre-malignant and malignant lesions. Cytology is screened and interpreted at [facility] - [address], [place] [address] and [facility] - [address] [place]; [place] [address] and [facility] - [address]; [place] [address] and [facility] [address]; [place] [address] 04/02/2019 12:28 PM T [facility] Other (Cervical/Vagina l) 03/22/2019 12:42 PM CDT 03/24/2019 8:37 AM CDT Danika Carrasquillo MD PATHOLOGY/CYTOLOGY [facility] [address] [place] [address], from Last 3 Months or Most Recently Relevant to Health Maintenance Advance Directives * Full Code (Latest Code Status on File) Date Activated Date Inactivated Comments 07/18/2018 8:38 AM 07/22/2018 6:10 PM Question Answer Comments Code Status Discussion: Not Discussed * Full Code Date Activated Date Inactivated Comments 07/18/2018 4:12 AM 07/18/2018 8:38 AM * Full Code Date Activated Date Inactivated Comments 07/15/2018 2:22 PM 07/15/2018 8:01 PM Question Answer Comments Code Status Discussion: Not Discussed * Full Code Date Activated Date Inactivated Comments 07/14/2018 1:55 PM 07/14/2018 10:50 PM Care Teams Regional Driver Relationship Specialty Start Date End Date Pcp, No . PCP - General 07/14/18
== END 2024-08-04 07:46 | disposition home or self-care (01) ==
LOC: NFLDREF 08-07 20:21
PROVIDERS: PCP Family Medicine; Referring Provider Family Medicine; Visit Provider Obstetrics & Gynecology
DX: Z00.00 Encounter for general adult medical examination without abnormal findings (principal); Z13.6 Encounter for screening for cardiovascular disorders
CPT/HCPCS: 80061